=== PATIENT | female | born 2005 | race Caucasian/White ===

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

== ENCOUNTER 2023-11-17 12:14 | Emergency (ER) | payer BC, MEDICAID ==
[~2023-11-17] VITALS: Ht 157.5 cm; Wt 50.6 kg
[2023-11-17 12:14] VITALS: TEMP 98.7
[2023-11-17 12:38] VITALS: BP 124/84; PULSE 85; RESP 19; O2SAT 100
[2023-11-17 14:02] LABS: BASOPHILS # (AUTO) 0.1 X10'3 (0-0.2); EOSINOPHILS # (AUTO) 0.1 X10'3 (0-0.9); EOSINOPHILS % (AUTO) 0.8 % (0-6); HEMOGLOBIN 13.1 g/dl (12.0-16.0); LYMPHOCYTES # (AUTO) 2.8 X10'3 (1.1-4.8); LYMPHOCYTES % (AUTO) 40.2 % (21-51); MEAN CORPUSCULAR HEMOGLOBIN 28.6 PG (27.0-31.0); MEAN CORPUSCULAR HGB CONC 33.7 g/dL (33.0-36.5); MEAN CORPUSCULAR VOLUME 84.9 FL (78-98); MEAN PLATELET VOLUME 9.5 FL (7.4-10.4); MONOCYTES # (AUTO) 0.5 X10'3 (0-0.9); MONOCYTES % (AUTO) 6.7 % (2-12); NEUTROPHILS # (AUTO) 3.5 X10'3 (1.8-7.7); NEUTROPHILS % (AUTO) 51.3 % (42-75); PLATELET COUNT 285 X10'3 (140-440); RED BLOOD COUNT 4.59 X10'6 (4.20-5.60); RED CELL DISTRIBUTION WIDTH 15.1 % (11.5-14.5); WHITE BLOOD COUNT 6.9 X10'3 (4.5-11.0)
[2023-11-17 14:34] LABS: ALBUMIN 4.6 G/DL (3.4-5.0); ANION GAP 11 (8-16); BLOOD UREA NITROGEN 9 MG/DL (7-18); BUN/CREATININE RATIO 12.3 (10.0-20.0); CALCIUM 9.7 MG/DL (8.5-10.1); CHLORIDE 103 MMOL/L (99-107); CREATININE 0.73 MG/DL (0.40-0.90); GLUCOSE 95 MG/DL (70-104); POTASSIUM 4.2 MMOL/L (3.5-5.1); SODIUM 140 MMOL/L (135-145); TOTAL CARBON DIOXIDE 25.7 MMOL/L (24-32); eCRCL 97 ML/MIN; eGFR > 90 ML/MIN
== END 2023-11-17 14:58 | disposition home or self-care (01) ==
LOC: ER 12:15
DX: N93.9 Abnormal uterine and vaginal bleeding, unspecified (principal); G89.29 Other chronic pain; M54.9 Dorsalgia, unspecified
CPT/HCPCS: 36415; 76801; 80048; 84702; 85025; 86900; 86901; 99284

== ENCOUNTER 2024-01-14 19:56 | Emergency (ER) | payer MEDICAID ==
[~2024-01-14] VITALS: Ht 157.5 cm; Wt 62.3 kg
[2024-01-14 20:03] VITALS: BP 110/66; PULSE 87; RESP 12; O2SAT 98
[2024-01-14] MEDS: cyclobenzaprine 10mg tablet PO ONE (20:48)
[2024-01-14] MEDS ORDERED: METH-798 PO (21:00)
[2024-01-14 21:04] VITALS: TEMP 98.2
== END 2024-01-14 21:05 | disposition home or self-care (01) ==
LOC: ER 19:56
DX: M26.602 Left temporomandibular joint disorder, unspecified (principal); G89.29 Other chronic pain; M54.9 Dorsalgia, unspecified
CPT/HCPCS: 99283

== ENCOUNTER 2024-04-18 23:04 | Emergency (ER) | payer MEDICAID ==
[~2024-04-18] VITALS: Ht 157.5 cm; Wt 48.6 kg
[~2024-04-18 23:04] MED LIST: METH-798 PO
[2024-04-18 23:16] VITALS: BP 117/55; PULSE 82; TEMP 98.4; O2SAT 100
[2024-04-18 23:47] LABS: BASOPHILS # (AUTO) 0.1 X10'3 (0-0.2); BASOPHILS % (AUTO) 0.8 % (0-1); EOSINOPHILS % (AUTO) 0.3 % (0-6); HEMOGLOBIN 13.2 g/dl (12.0-16.0); LYMPHOCYTES # (AUTO) 3.4 X10'3 (1.1-4.8); LYMPHOCYTES % (AUTO) 41.2 % (21-51); MEAN CORPUSCULAR HGB CONC 34.7 g/dL (33.0-36.5); MEAN CORPUSCULAR VOLUME 86.5 FL (78-98); MEAN PLATELET VOLUME 9.3 FL (7.4-10.4); MONOCYTES # (AUTO) 0.7 X10'3 (0-0.9); MONOCYTES % (AUTO) 8.3 % (2-12); NEUTROPHILS # (AUTO) 4.1 X10'3 (1.8-7.7); NEUTROPHILS % (AUTO) 49.4 % (42-75); PLATELET COUNT 227 X10'3 (140-440); RED BLOOD COUNT 4.39 X10'6 (4.20-5.60); RED CELL DISTRIBUTION WIDTH 13.9 % (11.5-14.5); WHITE BLOOD COUNT 8.2 X10'3 (4.5-11.0)
[2024-04-18 23:49] LABS: BILIRUBIN,URINE NEGATIVE (Neg); CLARITY,URINE SLIGHTLY CLOUDY (Clear); COLOR,URINE AMBER (Yellow); GLUCOSE, URINE NEGATIVE (Neg); KETONES,URINE 15 mg/dl (Neg); LEUKOCYTE ESTERASE ,URINE SMALL (Neg); NITRITES, URINE POSITIVE (Neg); OCCULT BLOOD,URINE NEGATIVE (Neg); PROTEIN,URINE 100 mg/dl (Neg)
[2024-04-18 23:51] LABS: URINE HCG NEGATIVE (NEG)
[2024-04-18 23:54] LABS: UA COLLECTION TYPE CLN CATCH MIDSTREAM
[2024-04-18 23:55] LABS: SQUAMOUS EPITHELIAL CELL,UR MANY /LPF (FEW)
[2024-04-18 23:57] VITALS: RESP 16
[2024-04-18 23:57] LABS: WBC CLUMPS,URINE MODERATE /HPF (NEGATIVE)
[2024-04-18 23:58] LABS: TOTAL CARBON DIOXIDE 23.9 MMOL/L (24-32)
[2024-04-18 23:58] LABS: WBC,URINE 50-100 /HPF (0-4)
[2024-04-18 23:59] LABS: BACTERIA,URINE 4+ /HPF (Neg); RBC,URINE 0-2 /HPF (0-2)
[2024-04-19 00:32] LABS: ALANINE AMINOTRANSFERASE 9 U/L (12-78); ALBUMIN 4.9 G/DL (3.4-5.0); ALBUMIN/GLOBULIN RATIO 1.6 (1.1-1.5); ALKALINE PHOSPHATASE 76 IU/L (46-116); ANION GAP 9 (8-16); ASPARTATE AMINO TRANSFERASE 16 U/L (10-37); BILIRUBIN,TOTAL 3.1 MG/DL (0.1-1.0); BLOOD UREA NITROGEN 9 MG/DL (7-18); BUN/CREATININE RATIO 11.1 (10.0-20.0); CHLORIDE 102 MMOL/L (99-107); CREATININE 0.81 MG/DL (0.40-0.90); GLUCOSE 91 MG/DL (70-104); SODIUM 135 MMOL/L (135-145); eCRCL 84 ML/MIN; eGFR 89 ML/MIN
[2024-04-19 00:42] LABS: LIPASE 40 U/L (16-77)
[2024-04-19 00:47] LABS: BETA HCG,QUANTITATIVE < 1.0 mIU/ml
[2024-04-19 00:52] LABS: POTASSIUM 2.8 MMOL/L (3.5-5.1)
[2024-04-19] MEDS ORDERED: potassium bicarbonate/cit acid 25mEq tablet.effervescent PO STA (01:41)
[2024-04-19] MEDS ORDERED: CEFD300C3 PO (01:49)
[2024-04-19] MEDS: CefTRIAXone 1000mg IM Kit (w/lidocaine diluent) IM ONE (01:58)
[2024-04-19] MEDS: POTASSIUM BICARB 20meq eff tab 20 MEQ TABLET.EFF PO STA (01:58)
== END 2024-04-19 01:04 | disposition home or self-care (01) ==
LOC: ER 23:05
DX: N39.0 Urinary tract infection, site not specified (principal); N91.2 Amenorrhea, unspecified; R10.30 Lower abdominal pain, unspecified; F12.90 Cannabis use, unspecified, uncomplicated; F17.210 Nicotine dependence, cigarettes, uncomplicated
CPT/HCPCS: 36415; 80053; 81001; 81025; 83690; 84702; 85025; 96372; 99283; J0696

== ENCOUNTER 2024-05-08 22:02 | Emergency (ER) | payer MEDICAID ==
[~2024-05-08] VITALS: Ht 157.5 cm; Wt 48.1 kg
[2024-05-08 22:09] VITALS: TEMP 98.5
[2024-05-08] MEDS ORDERED: OXYC-145 PO (23:31)
[2024-05-08] MEDS ORDERED: IBUP-1984 PO (23:31)
[2024-05-08] MEDS: ibuprofen tablet 400 MG TABLET PO STA (23:38)
[2024-05-08] MEDS: oxyCODONE/APAP 5-325mg tablet PO ONE (23:39)
[2024-05-08 23:46] VITALS: BP 125/72; PULSE 88; RESP 19; O2SAT 98
== END 2024-05-08 23:46 | disposition home or self-care (01) ==
LOC: ER 22:02
DX: S02.5XXA Fracture of tooth (traumatic), initial encounter for closed fracture (principal); S70.11XA Contusion of right thigh, initial encounter; S80.11XA Contusion of right lower leg, initial encounter; S40.022A Contusion of left upper arm, initial encounter; G89.29 Other chronic pain; M54.9 Dorsalgia, unspecified; Z98.890 Other specified postprocedural states; Z79.1 Long term (current) use of non-steroidal anti-inflammatories (NSAID); Z79.899 Other long term (current) drug therapy; W01.0XXA Fall on same level from slipping, tripping and stumbling without subsequent striking against object, initial encounter; Y93.89 Activity, other specified; Y92.89 Other specified places as the place of occurrence of the external cause; Y99.8 Other external cause status
CPT/HCPCS: 73090; 99283

== ENCOUNTER 2024-09-07 14:49 | Emergency (ER) | payer MEDICAID ==
[~2024-09-07] VITALS: Ht 162.6 cm; Wt 46.9 kg
[~2024-09-07 14:49] MED LIST changes: +OXYC-145 PO
[2024-09-07 15:16] VITALS: BP 110/83; PULSE 78; RESP 18; TEMP 99.3; O2SAT 100
[2024-09-07 16:17] LABS: BASOPHILS % (AUTO) 0.7 % (0-1); EOSINOPHILS % (AUTO) 0.4 % (0-6); HEMATOCRIT 39.3 % (35.0-45.0); HEMOGLOBIN 13.4 g/dl (12.0-16.0); LYMPHOCYTES # (AUTO) 2.8 X10'3 (1.1-4.8); LYMPHOCYTES % (AUTO) 45.5 % (21-51); MEAN CORPUSCULAR HEMOGLOBIN 30.5 PG (27.0-31.0); MEAN CORPUSCULAR HGB CONC 34.1 g/dL (33.0-36.5); MEAN CORPUSCULAR VOLUME 89.4 FL (78-98); MEAN PLATELET VOLUME 8.9 FL (7.4-10.4); MONOCYTES # (AUTO) 0.5 X10'3 (0-0.9); MONOCYTES % (AUTO) 8.1 % (2-12); NEUTROPHILS # (AUTO) 2.8 X10'3 (1.8-7.7); NEUTROPHILS % (AUTO) 45.3 % (42-75); PLATELET COUNT 220 X10'3 (140-440); RED CELL DISTRIBUTION WIDTH 13.4 % (11.5-14.5); WHITE BLOOD COUNT 6.2 X10'3 (4.5-11.0)
[2024-09-07 16:43] LABS: ALANINE AMINOTRANSFERASE 15 U/L (12-78); ALBUMIN 4.5 G/DL (3.4-5.0); ALBUMIN/GLOBULIN RATIO 1.3 (1.1-1.5); ALKALINE PHOSPHATASE 74 IU/L (46-116); ANION GAP 10 (8-16); ASPARTATE AMINO TRANSFERASE 19 U/L (10-37); BLOOD UREA NITROGEN 14 MG/DL (7-18); BUN/CREATININE RATIO 22.2 (10.0-20.0); CALCIUM 9.1 MG/DL (8.5-10.1); CHLORIDE 106 MMOL/L (99-107); CREATININE 0.63 MG/DL (0.40-0.90); GLUCOSE 87 MG/DL (70-104); POTASSIUM 3.7 MMOL/L (3.5-5.1); SODIUM 141 MMOL/L (135-145); TOTAL CARBON DIOXIDE 25.5 MMOL/L (24-32); eCRCL 104 ML/MIN; eGFR > 90 ML/MIN
[2024-09-07 16:51] LABS: PRO BRAIN NATRIURETIC PEPTIDE 64 PG/ML (0-125); THYROID STIMULATING HORMONE 0.73 ulU/ml (0.34-4.50)
[2024-09-07 16:56] LABS: HCG SERUM QL NEGATIVE
[2024-09-07 19:28] LABS: BILIRUBIN,URINE SMALL (Neg); CLARITY,URINE CLOUDY (Clear); COLOR,URINE YELLOW (Yellow); GLUCOSE, URINE NEGATIVE (Neg); KETONES,URINE 15 mg/dl (Neg); LEUKOCYTE ESTERASE ,URINE SMALL (Neg); NITRITES, URINE NEGATIVE (Neg); OCCULT BLOOD,URINE NEGATIVE (Neg); PROTEIN,URINE 30 mg/dl (Neg); UROBILINOGEN,URINE 0.2 E.U/dL (0.2-1.0)
[2024-09-07 19:34] LABS: BACTERIA,URINE 4+ /HPF (Neg); SQUAMOUS EPITHELIAL CELL,UR MANY /LPF (FEW); UA COLLECTION TYPE CLN CATCH MIDSTREAM
[2024-09-07 19:35] LABS: RBC,URINE NONE SEEN /HPF (0-2)
[2024-09-07 19:54] LABS: URINE AMPHETAMINE SCREEN NEGATIVE (Neg); URINE BARBITUATE SCREEN NEGATIVE (Neg); URINE BENZODIAZEPINES SCREEN NEGATIVE (Neg); URINE CANNABINOID SCREEN POSITIVE (Neg); URINE COCAINE SCREEN NEGATIVE (Neg); URINE METHADONE SCREEN NEGATIVE (Neg); URINE OPIATE SCREEN NEGATIVE (Neg); URINE PHENCYCLIDINE SCREEN NEGATIVE (Neg)
== END 2024-09-07 19:39 | disposition home or self-care (01) ==
LOC: ER 14:50
DX: R00.2 Palpitations (principal); Z98.890 Other specified postprocedural states
CPT/HCPCS: 36415; 71045; 80053; 80305; 81001; 83880; 84443; 84484; 84703; 85025; 93005; 99285

== ENCOUNTER 2025-01-26 15:17 | Emergency (ER) | payer MEDICAID ==
[~2025-01-26] VITALS: Ht 157.5 cm; Wt 43.7 kg
--- NOTE | 2025-01-26 17:23 | Physician Documentation ---
History of Present Illness ~ General Chief Complaint: Multiple Medical Complaints Stated Complaint: DIZZY Time Seen by MD: 17:23 Primary Medical Doctor: wilfrido davis History of Present Illness Initial Comments Patient is seen today with complaints of generalized fatigue in feeling weak along with left-sided flank pain that radiates down into her left groin. Patient does admit to increased urinary frequency but denies any significant dysuria or urgency. Patient denies any fevers or chills but does admit to some body aches. She denies any chest pain or shortness of breath or nausea, vo miting, diarrhea. She has no other concern or complaint at this time. Patient states that she did have or start vaginal bleeding yesterday which is when her pain actually started. Patient states she has not had a normal period In three months. Patient states she does have history of ovarian cysts but states this feels different. Patient does have history of chronic constipation and feels she may be a little constipated as she has been passing only small hard stool for the last few days. Medication Reconciliation Allergies: Coded Allergies: No Known Allergies (Unverified , 07/21/21) Scheduled Methocarbamol (Methocarbamol), 1 TAB PO Q8H Scheduled PRN Oxycodone HCl/Acetaminophen (Percocet 5-325 mg Tablet), 1 TABLET PO Q6H PRN for pain Past Medical History Past Medical History: Chronic Back Pain, Extremity Fracture Past Surgical History: orthopedic surgeries Alcohol Use: None Drug Use: none Lives In: Home Review of Systems Constitutional: Denies: chills, fever, weakness Eyes: Denies: pain, blurred vision ENT: Denies: ear pain, nose pain, throat pain, mouth pain Respiratory: Denies: cough, shortness of breath Cardiovascular: Denies: chest pain, palpitations Gastrointestinal: Denies: abdominal pain, nausea, vomiting Genitourinary: Denies: burning, dysuria Female Genitalia: Denies: vaginal discharge, pelvic pain Neurological: Denies: headache, dizziness Musculoskeletal: Denies: pain, swelling Integumentary: Denies: rash, lesions Allergic/Immunologic: Denies: hives, itching Hematologic/Lymphatic: Denies: no symptoms reported Psychiatric: Denies: depression, anxiety Physical Exam Physical Exam Vital Signs: Temperature: 98.5, Source: Temporal, Heart Rate: 109, Respiratory Rate: 20, BP: 126/83, Pulse Oximetry: 100, Weight: 43.700 Oxygen Flow Rate: 0 Physical Exam General: Awake and Alert, no acute distress. HEENT: Conjunctiva pink, Sclera clear, Mucus Membranes moist. Neck: Supple without masses and tenderness. Resp: Unlabored. Lungs clear to auscultation bilaterally. Heart: Regular Rate and rhythm, normal S1 and S2 without murmur, rub or gallop. Abdomen: Patient on exam does have left-sided CVA tenderness only, no CVA tenderness on the right side, abdomen is tender to palpation in the left upper and left lower quadrants in his otherwise nontender, no guarding, no rebound tenderness, no masses appreciable on exam. Extremities: No cyanosis,clubbing or edema. Skin: Warm and Dry. Progress Results/Orders Results/Orders Orders - DIMA CALVO PAC Ketorolac Trometh 30mg/Ml Vial (Toradol (01/26/25 19:39) Polyethylene Glycol 3350 Pkt (Miralax Pa (01/26/25 19:39) Completed Orders - DIMA CALVO PAC Cbc/Diff (01/26/25 17:20) BMP (01/26/25 17:20) Vital Signs 01/26/25 01/26/25 01/26/25 15:28 19:03 19:13 Temp 98.5 Pulse 109 85 Resp 20 14 14 B/P (MAP) 126/83 96/58 (71) Pulse Ox 100 99 O2 Flow Rate 0 Laboratory Tests Test 01/26/25 16:41 01/26/25 17:26 Urine Specimen Description Cln catch midstream Urine Color Yellow Urine Clarity Clear Urine pH 8.0 Urine Specific [place] 1.010 Urine Protein Negative Urine Glucose (UA) Negative Urine Ketones Negative Urine Occult Blood Trace-intact Urine Nitrite Negative Urine Bilirubin Negative Urine Urobilinogen 0.2 Urine Leukocyte Esterase Negative Urine RBC 0-2 Urine WBC 0-4 Urine Squamous Epithelial Cells Few Urine Bacteria None seen Urine Culture Indicated Not ind Volume Urine Centrifuged 10 ml Urine HCG, Qualitative Negative Urine Comment White Blood Count 8.1 Red Blood Count 4.44 Hemoglobin 13.7 Hematocrit 39.4 Mean Corpuscular Volume 88.8 Mean Corpuscular Hemoglobin 30.9 Mean Corpuscular Hemoglobin Concent 34.8 Red Cell Distribution Width 13.6 Platelet Count 246 Mean Platelet Volume 9.4 Neutrophils (%) (Auto) 65.0 Lymphocytes (%) (Auto) 25.0 Monocytes (%) (Auto) 9.0 Eosinophils (%) (Auto) 0.3 Basophils (%) (Auto) 0.7 Neutrophils # (Auto) 5.2 Lymphocytes # (Auto) 2.0 Monocytes # (Auto) 0.7 Eosinophils # (Auto) 0.0 Basophils # (Auto) 0.1 CBC Comment Sodium Level 142 Potassium Level 3.7 Chloride Level 106 Carbon Dioxide Level 27.0 Anion Gap 9 Blood Urea Nitrogen 9 Creatinine 0.60 Estimated GFR/1.73 m2 > 90 BUN/Creatinine Ratio 15.0 Glucose Level 95 Calcium Level 9.1 Albumin 4.3 Chemistry Comments Medical Decision Making Findings Patient is seen today with complaints of generalized fatigue in feeling weak along with left-sided flank pain that radiates down into her left groin. Patient does admit to increased urinary frequency but denies any significant dysuria or urgency. Patient denies any fevers or chills but does admit to some body aches. She denies any chest pain or shortness of breath or nausea, vomiting, diarrhea. She has no other concern or complaint at this time. Patient states that she did have or start vaginal bleeding yesterday which is when her pain actually started. Patient states she has not had a normal period In three months. Patient states she does have history of ovarian cysts but states this feels different. Patient does have history of chronic constipation and feels she may be a little constipated as she has been passing only small hard stool for the last few days. Patient did have blood work drawn as well as urinalysis and urine hCG that came back negative and no sign of UTI and blood work was completely unremarkable. Patient's history physical exam findings are relatively benign and patient likely is having pain from menstruation or constipation. Patient will follow up with primary care in 2-3 days if no better as needed sooner. Return to ED with any worsening, concerning or changing symptoms. Patient declined ultrasound of the pelvis at this time. Patient was given MiraLax dose in the ED today as well as Toradol 30 mg IM. Departure Disposition: HOME / SELF CARE / HOMELESS Impression: Primary Impression: Dysmenorrhea Additional Impression: Constipation Qualified Codes: K59.00 - Constipation, unspecified Condition: Improved Additional Instructions: Patient did have blood work drawn as well as urinalysis and urine hCG that came back negative and no sign of UTI and blood work was completely unremarkable. Patient's history physical exam findings are relatively benign and patient likely is having pain from menstruation or constipation. Patient will follow up with primary care in 2-3 days if no better as needed sooner. Return to ED with any worsening, concerning or changing symptoms. Referrals: NO PRIMARY CARE PROVIDER (PCP) Prescriptions Sennosides/Docusate Sodium (Senna Plus 8.6-50 mg Tablet) 8.6 Mg-50 Mg Tablet 1 TAB PO TID for 10 Days, #30 TAB 0 Refills Prov: DIMA CALVO 01/26/25 Polyethylene Glycol 3350 (Miralax) 17 Gram/Dose Powder 17 GM PO DAILY for constipation, #527 GM 0 Refills dissolve in water Prov: DIMA CALVO 01/26/25 Ibuprofen (Ibuprofen) 600 Mg Tablet 1 TAB PO Q8H for pain for 10 Days, #30 TAB 0 Refills with food Prov: DIMA CALVO 01/26/25 Signature Scribe Signature: No scribe Attestation: No scribe DIMA CALVO Jan 26, 2025 17:23
[2025-01-26 17:47] LABS: MEAN PLATELET VOLUME 9.4 FL (7.4-10.4); RED CELL DISTRIBUTION WIDTH 13.6 % (11.5-14.5)
[2025-01-26 17:59] LABS: CREATININE 0.60 MG/DL (0.40-0.90); TOTAL CARBON DIOXIDE 27.0 MMOL/L (24-32); eCRCL 102 ML/MIN; eGFR > 90 ML/MIN
[2025-01-26 19:10] LABS: URINE HCG NEGATIVE (NEG)
[2025-01-26 19:12] LABS: LEUKOCYTE ESTERASE ,URINE NEGATIVE (Neg); NITRITES, URINE NEGATIVE (Neg); OCCULT BLOOD,URINE TRACE-INTACT (Neg)
[2025-01-26 19:15] LABS: UA COLLECTION TYPE CLN CATCH MIDSTREAM
[2025-01-26 19:31] LABS: SQUAMOUS EPITHELIAL CELL,UR FEW /LPF (FEW)
[2025-01-26] MEDS ORDERED: IBUP-1985 PO (19:55)
[2025-01-26] MEDS ORDERED: SENN-302 PO (19:55)
[2025-01-26] MEDS ORDERED: POLY119P2 PO (19:55)
[2025-01-26] MEDS: polyethylene glycol 3350 17gm powd pack PO STA (20:00)
[2025-01-26] MEDS: ketorolac trometh 30MG/ML vial 30 MG/ML VIAL IM STA (20:00)
[2025-01-26 20:06] VITALS: BP 102/70; PULSE 66; RESP 15; TEMP 98.2; O2SAT 99
== END 2025-01-26 20:18 | disposition home or self-care (01) ==
LOC: ER 15:17
DX: N94.6 Dysmenorrhea, unspecified (principal); K59.00 Constipation, unspecified
CPT/HCPCS: 36415; 80048; 81001; 81025; 85025; 96372; 99283; J1885

== ENCOUNTER 2025-05-07 15:04 | Emergency (ER) | payer MEDICAID ==
[~2025-05-07] VITALS: Ht 157.5 cm; Wt 45.7 kg
[~2025-05-07 15:04] MED LIST changes: +IBUP600T52 PO; +POLY119P2 PO; +SENN-302 PO
[2025-05-07 15:12] VITALS: BP 131/87; PULSE 86; O2SAT 100
--- NOTE | 2025-05-07 15:43 | Physician Documentation ---
History of Present Illness ~ Chief Complaint: Rib pain Stated Complaint: RIB PAIN Time Seen by MD: 16:29 Primary Medical Doctor: wilfrido davis [facility] This is a 20-year-old female who presents with left lateral rib pain and right posterior rib pain after a fall in which she tumbled down some stairs, patient reports no other injuries and reports no loss of consciousness and no blood thinners, patient reports she may have hit her head but has no head pain. Patient reports pain to her ribs is worse with a deep breathing or when she tries to pick her children up. Patient additionally reports no nausea or vomiting or confusion following the fall. Patient reports no other acute symptoms or concerns. Tetanus within 5 Years?: Yes Allergies: Coded Allergies: No Known Allergies (Unverified , 05/07/25) Active Prescriptions See Medication Reconciliation Form. Medication Reconciliation Scheduled Cephalexin*Monohydrate* (Keflex*), 1 CAP PO QID Ibuprofen (Ibuprofen), 1 TAB PO Q8H Ibuprofen (Ibuprofen), 1 TAB PO Q8H Lidocaine (Lidoderm), 1 PATCH TOP DAILY Methocarbamol (Methocarbamol), 1 TAB PO Q8H Polyethylene Glycol 3350 (Miralax), 17 GM PO DAILY Sennosides/Docusate Sodium (Senna Plus 8.6-50 mg Tablet), 1 TAB PO TID Scheduled PRN Oxycodone HCl/Acetaminophen (Percocet 5-325 mg Tablet), 1 TABLET PO Q6H PRN for pain Past Medical History Past Medical History: No Pertinent History, Chronic Back Pain, Extremity Fracture Past Surgical History: orthopedic surgeries Alcohol Use: None Drug Use: none Lives In: Home Review of Systems ROS As stated above in the HPI, otherwise all systems are reviewed and negative. Physical Exam Vital Signs: Temperature: 97.6, Source: Oral, Heart Rate: 86, Respiratory Rate: 18, BP: 131/87, Pulse Oximetry: 100, Weight: 45.730 Oxygen Flow Rate: 0 Physical Exam VITALS: Reviewed and as above. GENERAL: Alert, nontoxic appearing, no apparent distress. HEENT: PERRLA, EOMI, no facial swelling, no injuries to head no C-spine tenderness, able to rotate head 45 in each direction, no mays sign, no raccoon eyes RESPIRATORY: No increased work of breathing, no respiratory distress, speaking in full clear sentences, clear lung sounds in all zuniga CHEST: Left lateral lower chest tender to palpation, no crepitus, no step-off, no flail chest, right chest wall tender to palpation, no crepitus, no step-off, no flail chest CV: Rate and rhythm no murmur BACK: Mild right-sided CVA tenderness. No central spinal tenderness, no step- offs, no crepitus GI: Nontender MUSCULOSKELETAL: Deformities, no tenderness to palpation of extremities SKIN: No ecchymosis or erythema NEURO: GCS 15 Progress Results/Orders Results/Orders Orders - BHAVIK FLORIAN LOG LOADER HELPER Raimundo Ribs With Pa Chest (05/07/25 15:40) Ultrasound Kidney Non Vasc (05/07/25 ) Completed Orders - BHAVIK FLORIAN LOG LOADER HELPER Raimundo Ribs With Pa Chest (05/07/25 15:40) Ketorolac Trometh 15mg/Ml Vial (Toradol (05/07/25 17:35) Ultrasound Kidney Non Vasc (05/07/25 ) Lidocaine 5% Patch (Lidoderm 5% Patch) (05/07/25 18:05) Cephalexin Capsule (Keflex Capsule) (05/07/25 18:05) Medications Received in ER Medications (Trade) Dose Ordered Sig/Jimi Route PRN Reason Start Time Stop Time Status Last Admin Dose Admin (Lidoderm 5% Patch) 1 patch ONCE ONCE TP 05/07/25 18:05 05/07/25 18:06 DC 05/07/25 18:10 1 PATCH (Keflex capsule) 500 mg ONCE ONCE PO 05/07/25 18:05 05/07/25 18:06 DC 05/07/25 18:09 500 MG Vital Signs 05/07/25 05/07/25 05/07/25 15:12 17:42 18:21 Temp 97.6 97.6 Pulse 86 Resp 18 16 B/P (MAP) 131/87 Pulse Ox 100 O2 Flow Rate 0 Laboratory Tests Test 05/07/25 15:55 Urine Specimen Description Cln catch midstream Urine Color Straw Urine Clarity Slightly cloudy Urine pH 7.0 Urine Specific [place] <=1.005 Urine Protein Negative Urine Glucose (UA) Negative Urine Ketones Negative Urine Occult Blood Trace-intact Urine Nitrite Negative Urine Bilirubin Negative Urine Urobilinogen 0.2 Urine Leukocyte Esterase Moderate H Urine RBC 20-50 Urine WBC 50-100 H Urine Squamous Epithelial Cells Moderate Urine Transitional Epithelial Cells Few Urine Bacteria 1+ Urine Mucus Few Urine Culture Indicated Indicated Volume Urine Centrifuged 10 ml Urine HCG, Qualitative Negative Urine Comment Microbiology Date/Time Source Procedure Growth Status 05/07/25 16:23 Urine Clean Catch Midstream Urine Culture - Preliminary Culture received. Resulted EKG/XRAY/CT/US/VASC/MRI Chest X-Ray : Additional Comments Exam: RAIMUNDO RIBS WITH PA CHEST EXAM: DI RAIMUNDO RIBS WITH PA CHEST INDICATION: Rib Pain Post Fall TECHNIQUE: 3 views of the bilateral ribs COMPARISON: DI CHEST,SINGLE VIEW on DOS: 09/07/24 FINDINGS/IMPRESSION: No radiographic evidence of an acute osseous abnormality. There is no acute fracture, osseous malalignment, or aggressive focal osseous lesion. Electronically Signed by:HIMANSHU STOKES MD Date & Time: 05/07/251649 Dictated by: HIMANSHU STOKES MD Dictation date and time: 05/07/251649 I have reviewed and agree with the radiology report. I have reviewed and interpreted the imaging as: No focal consolidation or pneumothorax, no displaced rib fractures Ultrasound : Impression Exam: ULTRASOUND KIDNEY NON VASC US ULTRASOUND KIDNEY NON VASC HISTORY: Flank Pain Post Fall COMPARISON: None TECHNIQUE: Sonographic grayscale and color doppler evaluation of the kidneys and urinary bladder was performed. FINDINGS: RIGHT: 9.8 x 4.4 x 5.4 cm. Normal cortical echogenicity and normal contour. No hydronephrosis. No focal renal mass lesion or shadowing stone LEFT: 10 x 4.3 x 5.1 cm. Normal cortical echogenicity and normal contour. No hydronephrosis. No focal renal mass lesion or shadowing stone BLADDER: The urinary bladder is well distended and appears unremarkable. Right and left ureteral jets are visualized. Normal postvoid bladder volume. OTHER: None IMPRESSION: 1. Unremarkable retroperitoneal ultrasound without evidence for hydronephrosis. Electronically Signed by:HIMANSHU STOKES MD Date & Time: 05/07/251834 Dictated by: HIMANSHU STOKES MD Dictation date and time: 05/07/251834 Medical Decision Making Additional information obtaine: N/A Findings This 20-year-old female presented with left lateral chest wall pain and right posterior chest wall pain after a fall in which she tumbled down some stairs two days prior, it was reassuring patient reported no other injuries and did not have a loss of consciousness and is not on blood thinners. Physical exam demon strated tenderness to left lateral chest wall and right posterior chest wall without evidence of flail chest or crepitus to the area, imaging of ribs did not demonstrate evidence of fracture or dislocation and no evidence of pneumothorax or hemothorax. Chest wall pain likely soft tissue injury. Urinalysis was obtained and demonstrated sees with blood in urine therefore ultrasound of kidney was obtained, per initial report from mechanical engineering technician no free fluid round kidneys, nephrosis, or stone observed. Given findings of urinalysis and CVA tenderness with shared decision-making with patient she will be started on a short course of Keflex for possible urinary tract infection. Differential Dx:Considerations: Include: Chest wall contusion, Flail chest, Myocardial contusion, Pneumothorax, Pulmonary contusion, Rib fracture, Renal contusion, Splenic fracture, Tension pneumothorax Departure Time of Disposition: 18:14 Disposition: 01 HOME / SELF CARE / HOMELESS Impression: Primary Impression: Rib pain Additional Impression: UTI (urinary tract infection) Qualified Codes: N39.0 - Urinary tract infection, site not specified; R31.9 - Hematuria, unspecified Condition: Improved Discharge Instructions: Rib Contusion Additional Instructions: Please take the antibiotics as prescribed. Please use the prescribed high-dose ibuprofen as needed for pain, you may add Tylenol to this for breakthrough pain as directed by the [id number] packaging. Additionally you may use one lidocaine patch every 12 hours in the area of the causes you the most pain. Please follow up with your primary care provider in the next few days. Please return to the emergency department for any new or worsening concerning symptoms. Referrals: NO PRIMARY CARE PROVIDER (PCP) Prescriptions Ibuprofen (Ibuprofen) 800 Mg Tablet 1 TAB PO Q8H for pain for 10 Days, #30 TAB 0 Refills Prov: BHAVIK FLORIANP 05/07/25 Cephalexin*Monohydrate* (Keflex*) 500 Mg Capsule 1 CAP PO QID for 5 Days, #20 CAP Prov: BHAVIK FLORIAN [facility] 05/07/25 Lidocaine (Lidoderm) 5 % Adh..patch 1 PATCH TOP DAILY for 10 Days, #10 PATCH 0 Refills may wear up to 12 hours Prov: BHAVIK FLORIAN 05/07/25 Education Educated: Patient Educated regarding: diagnosis, treatment, prognosis, need for follow up Signature Scribe Signature: No scribe Attestation: The note accurately reflects work and decisions made by me.CHRISTOPHER Anderson 05/08/25 02:06 BHAVIK FLORIAN May 07, 2025 15:43
[2025-05-07 16:17] LABS: URINE HCG NEGATIVE (NEG)
[2025-05-07 16:18] LABS: LEUKOCYTE ESTERASE ,URINE MODERATE (Neg); NITRITES, URINE NEGATIVE (Neg); OCCULT BLOOD,URINE TRACE-INTACT (Neg)
[2025-05-07 16:21] LABS: UA COLLECTION TYPE CLN CATCH MIDSTREAM
[2025-05-07 16:23] LABS: MUCUS STRANDS FEW /LPF (Neg); SQUAMOUS EPITHELIAL CELL,UR MODERATE /LPF (FEW)
--- NOTE | 2025-05-07 16:54 | RADIOLOGY REPORT ---
EXAM: DI RAIMUNDO RIBS WITH PA CHEST INDICATION: Rib Pain Post Fall TECHNIQUE: 3 views of the bilateral ribs COMPARISON: DI CHEST,SINGLE VIEW on DOS: 09/07/24 FINDINGS/IMPRESSION: No radiographic evidence of an acute osseous abnormality. There is no acute fracture, osseous malalignment, or aggressive focal osseous lesion.
[2025-05-07 17:42] VITALS: RESP 16
[2025-05-07] MEDS: ketorolac trometh 15mg/ml vial 15 MG/ML ML IM ONE (17:42)
[2025-05-07] MEDS ORDERED: LIDO-52 TOP (18:16)
[2025-05-07] MEDS ORDERED: CEPH-585 PO (18:16)
[2025-05-07] MEDS ORDERED: IBUP-1986 PO (18:20)
[2025-05-07 18:21] VITALS: TEMP 97.6
--- NOTE | 2025-05-07 18:37 | RADIOLOGY REPORT ---
US ULTRASOUND KIDNEY NON VASC HISTORY: Flank Pain Post Fall COMPARISON: None TECHNIQUE: Sonographic grayscale and color doppler evaluation of the kidneys and urinary bladder was performed. FINDINGS: RIGHT: 9.8 x 4.4 x 5.4 cm. Normal cortical echogenicity and normal contour. No hydronephrosis. No focal renal mass lesion or shadowing stone LEFT: 10 x 4.3 x 5.1 cm. Normal cortical echogenicity and normal contour. No hydronephrosis. No focal renal mass lesion or shadowing stone BLADDER: The urinary bladder is well distended and appears unremarkable. Right and left ureteral jets are visualized. Normal postvoid bladder volume. OTHER: None IMPRESSION: 1. Unremarkable retroperitoneal ultrasound without evidence for hydronephrosis.
[2025-05-09] MEDS ORDERED: AMOX-580 PO (14:52)
== END 2025-05-07 18:22 | disposition home or self-care (01) ==
LOC: ER 15:05
DX: R07.89 Other chest pain (principal); N39.0 Urinary tract infection, site not specified
CPT/HCPCS: 71111; 76770; 81001; 81025; 87077; 87088; 87186; 96372; 99285; J1885